=== PATIENT | female | born 1960 | race American Indian/Alaskan Native ===

== ENCOUNTER 2023-07-22 11:16 | Inpatient (IN) | payer OTHER ==
[2023-07-22] MEDS ORDERED: ACETAMINOPHEN INJECTION 100 ML IVPB ONE (12:26)
[2023-07-22] MEDS: SODIUM CHLORIDE 1,000 ML IV STA (12:26)
[2023-07-22] MEDS: ACETAMINOPHEN 1000 MG/100 ML BAG IVPB ONE (12:26)
[2023-07-22 12:58] LABS: BASO % 0.9 % (0-2.0); EOS % 2.3 % (0-4.5); HEMATOCRIT 33.7 % (32.4-45.2); HEMOGLOBIN 11.1 GM/dL (10.7-15.3); INR 1.55 (0.83-1.09); MCH 27.4 pg (25.7-33.7); MEAN PLT VOLUME 8.7 fl (7.5-11.1); MONO % 8.6 % (3.8-10.2); NEUT % 80.2 % (42.8-82.8); PLATELET COUNT 412 10^3/uL (134-434); PROTHROMBIN TIME (PATIENT) 17.9 SEC (9.7-13.0); RBC 4.06 M/mm3 (3.60-5.2); WHITE BLOOD COUNT 13.4 K/mm3 (4.0-10.0)
[2023-07-22 13:00] LABS: ACTIVATED PTT 28.7 SECONDS (25.2-36.5)
[2023-07-22] MEDS ORDERED: HYDROmorphone HCl 2 MG/ML VIAL ONE (13:00)
[2023-07-22] MEDS: HYDROmorphone HCl 2 MG/ML VIAL IVPUSH STA (13:04)
[2023-07-22 13:10] LABS: CALCIUM 8.7 mg/dL (8.5-10.1)
[2023-07-22 13:11] LABS: ALBUMIN 2.3 g/dl (3.4-5.0); BLOOD UREA NITROGEN 12.5 mg/dL (7-18)
[2023-07-22 13:14] LABS: BILIRUBIN,TOTAL 0.8 mg/dL (0.2-1); CREATININE 0.7 mg/dL (0.55-1.3); TOT PROT 7.1 g/dl (6.4-8.2)
[2023-07-22] MEDS ORDERED: HYDROmorphone HCl 2 MG/ML VIAL IVPB PRN (21:25)
[2023-07-22] MEDS: ATORVASTATIN CA 20 MG TABLET (FP) PO SCH (23:00)
[2023-07-23] MEDS: HYDROmorphone HCl 2 MG/ML VIAL IVPB ONE (07:38)
[2023-07-23] MEDS: LEVOTHYROXINE NA 25 MCG TABLET (FP) PO SCH (07:39)
[2023-07-23 09:43] LABS: BASO % 0.4 % (0-2.0); EOS % 2.5 % (0-4.5); HEMATOCRIT 31.6 % (32.4-45.2); HEMOGLOBIN 10.3 GM/dL (10.7-15.3); LYMPH % 8.2 % (8-40); MCH 27.1 pg (25.7-33.7); MCHC 32.6 g/dl (32.0-36.0); MEAN CELL VOLUME 83.2 fl (80-96); MONO % 10.1 % (3.8-10.2); NEUT % 78.8 % (42.8-82.8); PLATELET COUNT 361 10^3/uL (134-434); RDW 15.8 % (11.6-15.6); WHITE BLOOD COUNT 12.9 K/mm3 (4.0-10.0)
[2023-07-23] MEDS ORDERED: ENOXAPARIN NA (PORCINE) 40 MG/0.4 ML DISP.SYRIN SQ SCH (10:00)
[2023-07-23] MEDS: PARoxetine HCL 20 MG TABLET PO SCH (10:13)
[2023-07-23 10:33] LABS: POTASSIUM 3.8 mmol/L (3.5-5.1)
[2023-07-23 10:39] LABS: CALCIUM 8.1 mg/dL (8.5-10.1)
[2023-07-23 10:40] LABS: ALBUMIN 2.1 g/dl (3.4-5.0); BLOOD UREA NITROGEN 9.5 mg/dL (7-18); MAGNESIUM 1.9 mg/dL (1.8-2.4)
[2023-07-23 10:43] LABS: BILIRUBIN,TOTAL 0.7 mg/dL (0.2-1); CREATININE 0.5 mg/dL (0.55-1.3); PHOSPHOROUS 3.2 mg/dL (2.5-4.9); TOT PROT 6.4 g/dl (6.4-8.2)
[2023-07-23] MEDS: ACETAMINOPHEN 1000 MG/100 ML BAG IVPB PRN (18:15)
[2023-07-23] MEDS: ATORVASTATIN CA 10 MG TABLET (FP) PO SCH (21:39)
[2023-07-24 09:44] LABS: INR 1.74 (0.83-1.09); PROTHROMBIN TIME (PATIENT) 20.1 SEC (9.7-13.0)
[2023-07-24 09:46] LABS: BASO % 0.5 % (0-2.0); EOS % 1.6 % (0-4.5); HEMOGLOBIN 10.5 GM/dL (10.7-15.3); LYMPH % 5.2 % (8-40); MCH 27.5 pg (25.7-33.7); MCHC 32.8 g/dl (32.0-36.0); MEAN CELL VOLUME 83.8 fl (80-96); MEAN PLT VOLUME 9.3 fl (7.5-11.1); MONO % 7.8 % (3.8-10.2); NEUT % 84.9 % (42.8-82.8); PLATELET COUNT 354 10^3/uL (134-434); RBC 3.82 M/mm3 (3.60-5.2); WHITE BLOOD COUNT 13.8 K/mm3 (4.0-10.0)
[2023-07-24 10:35] LABS: CHLORIDE 103 mmol/L (98-107); POTASSIUM 3.7 mmol/L (3.5-5.1); SODIUM 135 mmol/L (136-145)
[2023-07-24 10:40] LABS: ALBUMIN 2.2 g/dl (3.4-5.0); ANION GAP 10 mmol/L (4-13); BLOOD UREA NITROGEN 9.7 mg/dL (7-18); CALCIUM 8.7 mg/dL (8.5-10.1); CO2 21 mmol/L (21-32); GLUCOSE,RANDOM 89 mg/dL (74-106); MAGNESIUM 1.9 mg/dL (1.8-2.4)
[2023-07-24 10:42] LABS: CREATININE 0.5 mg/dL (0.55-1.3); SGOT/AST 187 U/L (15-37); SGPT/ALT 25 U/L (13-61)
[2023-07-24 10:44] LABS: TOT PROT 6.4 g/dl (6.4-8.2)
[2023-07-24 10:45] LABS: BILIRUBIN,TOTAL 0.7 mg/dL (0.2-1)
[2023-07-24 10:52] LABS: ALK PHOS 323 U/L (45-117); LDH > 1000 U/L (84-246)
[2023-07-24 11:53] VITALS: BMI 21.2
[2023-07-24 14:34] LABS: PH,URINE 5.5 (5.0-8.0); URINE APPEARANCE CLEAR; URINE BILIRUBIN 1+ (NEGATIVE); URINE COLOR DK YELLOW; URINE GLUCOSE (UA) NEGATIVE (NEGATIVE); URINE KETONE 1+ (NEGATIVE); URINE LEUK ESTERASE NEGATIVE (NEGATIVE); URINE NITRITE NEGATIVE (NEGATIVE); URINE PROTEIN TRACE (NEGATIVE)
[2023-07-24] MEDS: PEG 3350/NA SULF BICARB CL/KCL 4000 ML SOLN.RECON PO ONE (15:40)
[2023-07-24] MEDS: ONDANSETRON 4 MG/2 ML VIAL IVPUSH PRN (17:56)
[2023-07-24] MEDS: BISACODYL 5 MG TABLET.DR (FP) PO ONE (20:06)
[2023-07-25] MEDS: SODIUM CHLORIDE 1,000 ML IV SCH (02:41)
[2023-07-25] MEDS ORDERED: LIDOCAINE VISCOUS 2% ORAL/TOP 15 ML UNIT-DOSE CUP ONE (08:20)
[2023-07-25 13:12] LABS: BASO % 0.3 % (0-2.0); EOS % 0.2 % (0-4.5); HEMATOCRIT 31.7 % (32.4-45.2); HEMOGLOBIN 10.3 GM/dL (10.7-15.3); LYMPH % 7.4 % (8-40); MCHC 32.7 g/dl (32.0-36.0); MEAN CELL VOLUME 82.7 fl (80-96); MEAN PLT VOLUME 8.5 fl (7.5-11.1); MONO % 9.9 % (3.8-10.2); NEUT % 82.2 % (42.8-82.8); PLATELET COUNT 369 10^3/uL (134-434); RBC 3.83 M/mm3 (3.60-5.2); RDW 15.9 % (11.6-15.6); WHITE BLOOD COUNT 13.7 K/mm3 (4.0-10.0)
[2023-07-25 14:00] LABS: POTASSIUM 3.2 mmol/L (3.5-5.1)
[2023-07-25 14:12] LABS: ALBUMIN 2.1 g/dl (3.4-5.0); BLOOD UREA NITROGEN 8.6 mg/dL (7-18); CALCIUM 8.7 mg/dL (8.5-10.1); MAGNESIUM 1.8 mg/dL (1.8-2.4)
[2023-07-25 14:14] LABS: CREATININE 0.5 mg/dL (0.55-1.3)
[2023-07-25 14:16] LABS: BILIRUBIN,TOTAL 0.9 mg/dL (0.2-1); TOT PROT 6.4 g/dl (6.4-8.2)
[2023-07-25] MEDS ORDERED: INSULIN (NOVOLOG) ASPART 100 UNITS/ML 10ML VIAL ONE (18:16)
[2023-07-25] MEDS: POTASSIUM CHLORIDE TABS 20 MEQ TABLET.ER (FP) PO SCH (18:25)
[2023-07-26] VITALS: RESP 20
[2023-07-26 09:26] LABS: BASO % 0.4 % (0-2.0); EOS % 0.3 % (0-4.5); HEMATOCRIT 30.8 % (32.4-45.2); LYMPH % 7.4 % (8-40); MCH 27.2 pg (25.7-33.7); MCHC 32.4 g/dl (32.0-36.0); MEAN PLT VOLUME 8.9 fl (7.5-11.1); MONO % 7.8 % (3.8-10.2); NEUT % 84.1 % (42.8-82.8); PLATELET COUNT 326 10^3/uL (134-434); RBC 3.67 M/mm3 (3.60-5.2); RDW 15.7 % (11.6-15.6); WHITE BLOOD COUNT 13.8 K/mm3 (4.0-10.0)
[2023-07-26 09:55] LABS: POTASSIUM 4.2 mmol/L (3.5-5.1)
[2023-07-26 10:22] LABS: ALBUMIN 1.9 g/dl (3.4-5.0); BLOOD UREA NITROGEN 7.4 mg/dL (7-18); CALCIUM 8.3 mg/dL (8.5-10.1)
[2023-07-26 10:23] LABS: MAGNESIUM 1.7 mg/dL (1.8-2.4)
[2023-07-26 10:25] LABS: CREATININE 0.5 mg/dL (0.55-1.3)
[2023-07-26 10:27] LABS: TOT PROT 5.9 g/dl (6.4-8.2)
[2023-07-26 10:28] LABS: BILIRUBIN,TOTAL 0.9 mg/dL (0.2-1)
[2023-07-28] MEDS ORDERED: ACETAMINOPHEN 1000 MG/100 ML BAG IVPB PRN (03:13)
[2023-07-28 06:48] VITALS: BP 129/81; PULSE 86; TEMP 98.5
== END 2023-07-28 14:02 | disposition home or self-care (01) | DRG 254 ==
LOC: JER 11:16 → JERBED 18:36 → OBSVTOIN 20:49 → J8W 07-23 02:11
PROVIDERS: ADMIT Internal Medicine; ATTEND Nurse Practitioner Acute Care
PROC: 0DB68ZX Excision of Stomach, Via Natural or Artificial Opening Endoscopic, Diagnostic (ICD-10-PCS; 2023-07-25)
PROC: 0DBM8ZX Excision of Descending Colon, Via Natural or Artificial Opening Endoscopic, Diagnostic (ICD-10-PCS; principal; 2023-07-25 09:00)
DX: D49.0 Neoplasm of unspecified behavior of digestive system (principal); J90 Pleural effusion, not elsewhere classified; I31.39 Other pericardial effusion (noninflammatory); R16.0 Hepatomegaly, not elsewhere classified; R18.8 Other ascites; F32.A Depression, unspecified; R91.1 Solitary pulmonary nodule; E03.9 Hypothyroidism, unspecified; E78.5 Hyperlipidemia, unspecified; D72.829 Elevated white blood cell count, unspecified; R68.81 Early satiety; K29.70 Gastritis, unspecified, without bleeding
CPT/HCPCS: 0241U-QW; 36415; 70553-TC; 71046-TC-FY; 71260-TC; 74177-TC; 74183-TC; 76705-TC; 80048; 80053; 81003; 82105; 82378; 83615; 83690; 83735; 84100; 84436; 84443; 84480; 85025; 85610; 85730; 86301; 86304; 86704; 86803; 86850; 86900; 86901; 87086; 87340; 87517; 88305-TC; 93005; 93010; 97116-GP; 97161-GP; 99285-25; G0378; J0131; Q9967